=== PATIENT | female | born 1995 | race Caucasian/White ===

== ENCOUNTER → 2017-01-25 | Outpatient (CLI) | payer BC ==
[~2017-01-25] MED LIST: IOHEXOL 350 MG/ML 75ml INJECTION ONE; NORMAL SALINE 100 ML ONE; PREN1TAB73 PO; SALINE FLUSH 10ml SYRINGE ONE
--- NOTE | 2017-01-25 11:01 | DI ---
Indication: ITS.REASON: I63.9 Cerebral infarction, unspecified PROCEDURE: CTA NECK W/WO CONTRAST: Encounter: Initial Comparison: None Technique: Axial CT angiography of the neck was performed with and without contrast with coronal and sagittal MIP reconstructed images. Surface shaded three-dimensional volume rendered imaging of the arterial vasculature was created by the technologist on a dedicated workstation under the direction of the interpreting radiologist and reviewed. Contrast: Omnipaque 350 74mL Automated Exposure Control and Iterative Reconstruction dose reducing techniques were utilized. Findings: Thyroid gland appears normal. Noncontrast images show no visible atherosclerotic plaque in the arterial system. Lung apices are clear. No pathologically enlarged lymph nodes or masses seen within the neck. Bone windows are within normal limits. Postcontrast images show normal appearance of the bilateral common, internal and external carotid arteries. No evidence of dissection, aneurysm or occlusion. No luminal narrowing or stenosis. The vertebral arteries are widely patent. Left vertebral is slightly dominant. The basilar artery appears normal. Posterior cerebral arteries are normal. Cervical of Choudhary anatomy is conventional. No evidence of aneurysm. Impression: Normal exam. No stenosis by NASCET criteria. .
== END ==
LOC: IMA 09:53
PROVIDERS: ATTEND Psychiatry & Neurology Clinical Neurophysiology
DX: I63.9 Cerebral infarction, unspecified (principal)
CPT/HCPCS: 70498; J7050; Q9967